=== PATIENT | female | born 1980 | race African-American/Black ===

== ENCOUNTER 2019-03-19 20:17 | Emergency (ER) | payer OTHER ==
[2019-03-19 20:27] VITALS: BP 143/60; PULSE 85; TEMP 98.5; BMI 30.2
--- NOTE | 2019-03-19 20:46 | PDOC ---
History of Present Illness - General Chief Complaint: Bite Stated Complaint: CAN'T OPEN LT EYE Time Seen by Provider: 03/19/19 20:22 History Source: Patient Exam Limitations: No Limitations - History of Present Illness Initial Comments: 03/19/19 21:07 HISTORY OF PRESENT ILLNESS: This is a 38-year-old woman denies medical history presents emergency department for evaluation of left upper eyelid swelling for 3 days after being bitten by an insect. Patient is a newlywed and her was concerned that the patient's condition improved has not resolved in 3 days. Patient denies any pain, blurry vision, headaches, fevers, chills, loss of vision or floaters. Patient denies trauma. No recent travel or sick contacts. PAST MEDICAL HISTORY: Denies past medical history SURGICAL HISTORY: Denies ALLERGIES: No known drug allergies REVIEW OF SYSTEMS General/Constitutional: Denies fever or chills. Denies weakness, weight change. HEENT: see HPI Cardiovascular: Denies chest pain or shortness of breath. Respiratory: Denies cough, wheezing, or hemoptysis. Gastrointestinal: Denies nausea, vomiting, diarrhea or constipation. Denies rectal bleeding. Genitourinary: Denies dysuria, frequency, or change in urination. Musculoskeletal: Denies joint or muscle swelling or pain. Denies neck or back pain. Skin and breasts: Denies rash or easy bruising. Neurologic: Denies headache, vertigo, loss of consciousness, or loss of sensation. Psychiatric: Denies depression or anxiety. Endocrine: Denies increased thirst. Denies abnormal weight change. Hematologic/Lymphatic: Denies anemia, easy bleeding, or history of blood clots. Allergic/Immunologic: Denies hives or skin allergy. Denies latex allergy. PHYSICAL EXAM General Appearance: Well-appearing, appropriately dressed. No apparent distress , no intoxication. HEENT: EOMI, PERRLA, normal ENT inspection, normal voice, TMs normal, pharynx normal. No conjunctival pallor. No photophobia, scleral icterus. Edema present to left upper eyelid. no erythema is present. No tenderness to palpation of the periorbital structures. No bony deformity, crepitus or step- off is present.No subcutaneous emphysema is palpated. Neck: Supple. Trachea midline. No tenderness, rigidity, carotid bruit, stridor , or thyromegaly. Anterior cervical chain lymphadenopathy present. Respiratory/Chest: Lungs CTAB. No shortness of breath, chest tenderness, respiratory distress, accessory muscle use. No crackles, rales, rhonchi, stridor , wheezing, dullness Cardiovascular: RRR. S1, S2. No JVD, murmur, bradycardia, tachycardia. Vascular Pulses: Dorsalis-Pedis (R): 2+, Dorsalis-Pedis (L): 2+ Lymphatic: Left preauricular and anterior cervical chain lymphadenopathy present. No tenderness upon palpation. Neurologic: ceramic capacitor processor II-XII intact. Fully oriented, alert. Appropriate mood/affect. Motor strength 5/5. No appreciable EOM palsy, facial droop or sensory deficit. Past History - Past Medical History Allergies/Adverse Reactions: Allergies Allergy/AdvReac Type Severity Reaction Status Date / Time No Known Allergies Allergy Verified 03/19/19 20:22 Home Medications: Ambulatory Orders Cephalexin Monohydrate [Keflex -] 500 mg PO Q6H #28 capsule 03/19/19 CVA: No COPD: No - Surgical History Gastric Stapling: Yes (Gastric sleeve) - Suicide/Smoking/Psychosocial Hx Smoking History: Never smoked *Physical Exam - Vital Signs Last Vital Signs Temp Pulse Resp BP Pulse Ox 98.5 F 85 20 143/60 100 03/19/19 20:22 03/19/19 20:22 03/19/19 20:22 03/19/19 20:22 03/19/19 20:22 Medical Decision Making - Medical Decision Making 03/19/19 21:05 A/P: 38-year-old woman with left upper eyelid swelling for 3 days No periorbital tenderness, crepitus, deformity presents on palpation Palpable preauricular and anterior cervical lymph nodes present on the left side. Swelling contained to the left upper eyelid. This is likely histamine reaction but given the lymphadenopathy that is present I will discharge the patient with Keflex 500 mg 4 times a day for the next 7 days to treat potential cellulitis. Patient has been instructed to take probiotics or eat yogurt while taking the medication. Patient verbalizes understanding of discharge instructions was satisfied with the care received today. *DC/Admit/Observation/Transfer Diagnosis at time of Disposition: Insect bite (nonvenomous) of left eyelid and periocular area, initial encounter - Discharge Dispostion Disposition: HOME Condition at time of disposition: Stable Decision to Admit order: No - Prescriptions Prescriptions: Cephalexin Monohydrate [Keflex -] 500 mg PO Q6H #28 capsule - Referrals - Patient Instructions Additional Instructions: Take Keflex 500 mg 4 times a day for the next 7 days Finish all antibiotics even if you feel better. Apply warm compresses to your eye as needed. Return to emergency department for any fevers, chills, worsening pain, drainage , vision loss, or any other concerns. Thank you very much for choosing us to provide your emergent health care needs. - Post Discharge Activity
== END 2019-03-19 20:49 | disposition home or self-care (01) ==
LOC: JERFT 20:17
DX: S00.262A Insect bite (nonvenomous) of left eyelid and periocular area, initial encounter (principal); W57.XXXA Bitten or stung by nonvenomous insect and other nonvenomous arthropods, initial encounter; Y93.89 Activity, other specified; Y92.89 Other specified places as the place of occurrence of the external cause; Y99.8 Other external cause status
CPT/HCPCS: 99281-25